=== PATIENT | male | born 1960 | race Caucasian/White ===

== ENCOUNTER 2020-01-08 20:47 | Emergency (ER) | payer OTHER, SELFPAY ==
--- NOTE | 2020-01-08 20:53 | ED.CPR ---
HPI - CPR General Chief Complaint: Cardiac Arrest/CPR Stated Complaint: unsresponsive Source: EMS History of Present Illness HPI narrative: Patient arrived by EMS with CPR in progress. Per EMS the patient had up to 30-minute downtime at home lasting 30 minutes prior to their arrival patient had 911 called by who found him down in the living room initial first responders arrived and had AED placed that showed no shock and started CPR when current EMS arrived the patient was in asystole patient had 20 minutes of CPR performed by current EMS with a total of 40 minutes of CPR performed by the time patient arrived to the emergency department after initial 20 minutes the patient did have fine V. fib he was shocked twice and then returned to asystole which she is remained in. Patient was intubated in the field. Patient's blood sugar was checked in the field and was 160 Review of Systems Review of Systems: ROS unobtainable: Yes unobtainable due to endotracheal tube PMFSH Past Medical History Medical History (Updated 01/08/20 @ 22:25 by Dewey Rojas DO) Diabetes mellitus Social History Social History (Updated 01/08/20 @ 20:59 by Dewey Rojas DO) Smoking status: Never smoker Exam Narrative: Exam Narrative: CAPPEARANCE: Lying in bed unresponsive to verbal and painful stimuli HEENT: Normocephalic, atraumatic, orotracheal tube in place Eyes: Pulses fixed and dilated RESPIRATORY: No spontaneous breath sounds auscultated. Equal breath sounds with bag ventilation CARDIOVASCULAR: No spontaneous heart rate auscultated ABDOMINAL: Soft, nondistended MUSCULOSKELETAl: Distal cyanosis with no spontaneous motion of extremities NEURO: Unresponsive to verbal and painful stimuli SKIN:: Cool and dry Course Course Emergency Course: Initial rhythm check in the emergency department shows asystole patient has been in cardiac arrest for over 40 minutes Patient's time of is 2049 Patient's and sons were present updated on patient's status all questions answered patient is seen by Dr. granados at [place] for internal medicine per the patient had been complaining of an upper respiratory infection for the past 2 days Attempted to page patient's PCP and unable [facility] office was notified Vital Signs Vital signs: Vital Signs Temperature 95 F L 01/08/20 21:01 Pulse Rate 0 L 01/08/20 21:01 Respiratory Rate 16 01/08/20 21:01 Blood Pressure 0/0 L 01/08/20 21:01 Temperature 95 F L 01/08/20 21:01 Pulse Rate 0 L 01/08/20 21:01 Respiratory Rate 16 01/08/20 21:01 Blood Pressure 0/0 L 01/08/20 21:01 Discharge Plan Discharge Clinical Impression: Cardiopulmonary arrest Patient Disposition: Condition: Follow-up/Referrals: PHYSICIAN NOT ON STAFF,NONSTAFF [Primary Care Provider] -
[2020-01-08 21:01] VITALS: BP 0/0; PULSE 0; RESP 16; TEMP 35
--- NOTE | 2020-01-08 21:12 | PC.NURSE ---
Pt to ed via ems with c/o cardiac arrest. Per ems, ems got a call for an approx down time prior to arrival of 20-30 mins. Ems followed acls protocol at house for approx 30 min prior to transport. On arrival, pt had received a total of 5mg epi and receieved a total of 3 shocks. Pt arrived with a 7.5 ET tube, marked at 26 at the lip. Equal chest rise, auto pulse providing CPR. initial rhythm was asystole. See code sheet.
== END 2020-01-08 23:00 | disposition expired ==
PROVIDERS: Emergency Provider Emergency Medicine
DX: I46.9 Cardiac arrest, cause unspecified (principal); E11.9 Type 2 diabetes mellitus without complications
CPT/HCPCS: 92950; 99285; J0171